=== PATIENT | female | born 1965 | race American Indian/Alaskan Native ===

== ENCOUNTER 2018-02-15 21:27 | Emergency (ER) | payer MEDICAID ==
[~2018-02-15] VITALS: Ht 160 cm; Wt 58.0 kg
[2018-02-15 21:44] VITALS: BP 125/81
== END 2018-02-16 07:40 | disposition left against medical advice (07) ==
LOC: ER 21:27
DX: Z53.21 Procedure and treatment not carried out due to patient leaving prior to being seen by health care provider (principal)

== ENCOUNTER 2019-04-21 14:11 | Emergency (ER) | payer MEDICAID ==
[~2019-04-21] VITALS: Ht 160 cm; Wt 67.3 kg
--- NOTE | 2019-04-21 14:40 | NUR ---
pt states she is here for head cold, cough, sore throat and congestion. pt not reporting same complaints as triage note. No reports of back pain anymore, states she had abdominal pain yesterday on left pelvic area when voiding .no complaints or burning on urination. pain has since resolved.
[2019-04-21 15:39] LABS: HEMOGLOBIN 7.9 g/dl (12.0-16.0); MEAN CORPUSCULAR HEMOGLOBIN 20.1 PG (27.0-31.0); MEAN CORPUSCULAR HGB CONC 29.8 g/dL (33.0-36.5); MEAN CORPUSCULAR VOLUME 67.5 FL (78-98)
[2019-04-21 15:41] LABS: HEMATOCRIT 26.3 % (35.0-45.0); MEAN PLATELET VOLUME 7.9 FL (7.4-10.4); PLATELET COUNT 241 X10'3 (140-440); RED CELL DISTRIBUTION WIDTH 21.9 % (11.5-14.5)
[2019-04-21 15:48] LABS: ALANINE AMINOTRANSFERASE 44 U/L (12-78); ALBUMIN 3.1 G/DL (3.4-5.0); ALBUMIN/GLOBULIN RATIO 0.6 (1.1-1.5); ALKALINE PHOSPHATASE 131 IU/L (46-116); ANION GAP 13 (8-16); ASPARTATE AMINO TRANSFERASE 113 U/L (10-37); BILIRUBIN,TOTAL 0.2 MG/DL (0.1-1.0); BLOOD UREA NITROGEN 7 MG/DL (7-18); BUN/CREATININE RATIO 11.1 (6.6-38.0); CALCIUM 7.9 MG/DL (8.5-10.1); CHLORIDE 104 MMOL/L (99-107); CREATININE 0.63 MG/DL (0.40-0.90); GLUCOSE 104 MG/DL (70-104); POTASSIUM 4.4 MMOL/L (3.5-5.1); SODIUM 139 MMOL/L (135-145); eGFR > 90 ML/MIN
[2019-04-21 15:50] LABS: TROPONIN I < 0.04 NG/ML (0.0-0.05)
--- NOTE | 2019-04-21 15:58 | NUR ---
PT SENT TO BATHROOM FOR UA, GAIT STEADY.
[2019-04-21 16:01] VITALS: BP 115/68
[2019-04-21 16:02] LABS: PLATELET ESTIMATE NORMAL; TOTAL CELLS COUNTED 100
[2019-04-21 16:03] LABS: ANISOCYTOSIS 3+; HYPOCHROMASIA 1+; MICROCYTOSIS 2+; POIKILOCYTOSIS FEW; POLYCHROMASIA FEW; TARGET CELLS FEW
[2019-04-21 16:24] LABS: CLARITY,URINE SLIGHTLY CLOUDY (Clear); COLOR,URINE YELLOW (Yellow); GLUCOSE, URINE NEGATIVE (Neg); KETONES,URINE TRACE mg/dl (Neg); LEUKOCYTE ESTERASE ,URINE SMALL (Neg); NITRITES, URINE POSITIVE (Neg); OCCULT BLOOD,URINE NEGATIVE (Neg); PROTEIN,URINE NEGATIVE (Neg); UROBILINOGEN,URINE 0.2 E.U/dL (0.2-1.0)
[2019-04-21 16:27] LABS: UA COLLECTION TYPE CLN CATCH MIDSTREAM
[2019-04-21 16:42] LABS: MUCUS STRANDS FEW /LPF (Neg); SQUAMOUS EPITHELIAL CELL,UR MANY /LPF (FEW)
[2019-04-21 16:44] LABS: BACTERIA,URINE 3+ /HPF (Neg); RBC,URINE 0-2 /HPF (0-2)
[2019-04-21 16:47] LABS: TRICHOMONAS,URINE MOD /HPF (NEGATIVE)
== END 2019-04-21 17:40 | disposition left against medical advice (07) ==
LOC: ER 14:13
DX: D64.9 Anemia, unspecified (principal); R10.32 Left lower quadrant pain; R05 Cough; R19.7 Diarrhea, unspecified; M62.838 Other muscle spasm; J44.9 Chronic obstructive pulmonary disease, unspecified; F17.200 Nicotine dependence, unspecified, uncomplicated
CPT/HCPCS: 36415; 71046; 74176; 80053; 81001; 84484; 85025; 93005; 99284

== ENCOUNTER 2019-06-13 23:55 | Emergency (ER) | payer MEDICAID ==
[~2019-06-13] VITALS: Ht 161.3 cm; Wt 65.3 kg
[2019-06-14] MEDS ORDERED: acetaminophen 325mg tablet PO ONE (00:10)
[2019-06-14] MEDS ORDERED: LORazepam 2 mg/ml vial IV ONE (00:35)
[2019-06-14] MEDS ORDERED: normal saline 1000ML IV soln IVB ONE (00:35)
[2019-06-14] MEDS ORDERED: famotidine/PF 10 mg/ml inj IV ONE (00:35)
[2019-06-14] MEDS ORDERED: pantoprazole 40 MG vial IV ONE (00:35)
[2019-06-14] MEDS ORDERED: glucagon, human recombinant 1mg kit IV ONE (00:35)
[2019-06-14] MEDS ORDERED: ESOMEPRAZOLE 40 MG VIAL IV ONE (01:12)
[2019-06-14] MEDS ORDERED: fentaNYL/PF 50MCG/1 ML 2ML syringe ONE (02:43)
[2019-06-14] MEDS ORDERED: MIDAZolam 5mg/5ml vial ONE (02:43)
[2019-06-14] MEDS ORDERED: LIDOcaine Viscous 15ml cup ONE (02:43)
[2019-06-14 02:44] VITALS: BP 123/60
[2019-06-14 03:20] VITALS: BP 132/68
[2019-06-14 03:29] VITALS: BP 109/70
[2019-06-14] MEDS ORDERED: OMEP20CA11 PO (03:29)
[2019-06-14 03:39] VITALS: BP 116/65
[2019-06-14 03:49] VITALS: BP 124/68
[2019-06-14 04:05] VITALS: BP 16/125
== END 2019-06-14 04:11 | disposition home or self-care (01) ==
LOC: ER 23:56
DX: T18.128A Food in esophagus causing other injury, initial encounter (principal); K20.9 Esophagitis, unspecified; J44.9 Chronic obstructive pulmonary disease, unspecified; F41.9 Anxiety disorder, unspecified; F31.9 Bipolar disorder, unspecified; Z79.899 Other long term (current) drug therapy; X58.XXXA Exposure to other specified factors, initial encounter; Y93.89 Activity, other specified; Y92.89 Other specified places as the place of occurrence of the external cause; Y99.8 Other external cause status
CPT/HCPCS: 43247; 96374; 96375; 99152; 99153; 99285; C1769; C1773; J1610; J2060; J2250; J3010; J3490; J7030; A4620

== ENCOUNTER 2019-08-03 12:53 | Emergency (ER) | payer MEDICAID ==
[~2019-08-03] VITALS: Ht 161.3 cm; Wt 70.5 kg
[~2019-08-03 12:53] MED LIST: OMEP20CA11 PO
[2019-08-03 13:38] LABS: HEMATOCRIT 41.2 % (35.0-45.0); HEMOGLOBIN 13.4 g/dl (12.0-16.0); WHITE BLOOD COUNT 2.7 X10'3 (4.5-11.0)
[2019-08-03 13:40] LABS: MEAN CORPUSCULAR HEMOGLOBIN 27.8 PG (27.0-31.0); MEAN CORPUSCULAR HGB CONC 32.4 g/dL (33.0-36.5); MEAN CORPUSCULAR VOLUME 85.7 FL (78-98); PLATELET COUNT 154 X10'3 (140-440); RED BLOOD COUNT 4.81 X10'6 (4.20-5.60); RED CELL DISTRIBUTION WIDTH 18.1 % (11.5-14.5)
[2019-08-03] MEDS ORDERED: normal saline 1000ml 1,000 ML IV ONE (13:40)
[2019-08-03 13:48] LABS: PARTIAL THROMBOPLASTIN TIME 29 SECONDS (22-32)
[2019-08-03 13:50] LABS: ALANINE AMINOTRANSFERASE 73 U/L (12-78); ALBUMIN 3.3 G/DL (3.4-5.0); ALBUMIN/GLOBULIN RATIO 0.6 (1.1-1.5); ALKALINE PHOSPHATASE 171 IU/L (46-116); ANION GAP 12 (8-16); ASPARTATE AMINO TRANSFERASE 182 U/L (10-37); BILIRUBIN,TOTAL 0.2 MG/DL (0.1-1.0); BLOOD UREA NITROGEN 6 MG/DL (7-18); CALCIUM 7.9 MG/DL (8.5-10.1); CHLORIDE 105 MMOL/L (99-107); CREATININE 0.67 MG/DL (0.40-0.90); GLUCOSE 107 MG/DL (70-104); SODIUM 141 MMOL/L (135-145); TOTAL CARBON DIOXIDE 24.3 MMOL/L (24-32); eGFR > 90 ML/MIN
[2019-08-03 14:50] LABS: CLARITY,URINE SLIGHTLY CLOUDY (Clear); COLOR,URINE YELLOW (Yellow); GLUCOSE, URINE NEGATIVE (Neg); KETONES,URINE NEGATIVE (Neg); LEUKOCYTE ESTERASE ,URINE TRACE (Neg); NITRITES, URINE NEGATIVE (Neg); OCCULT BLOOD,URINE NEGATIVE (Neg); PROTEIN,URINE NEGATIVE (Neg); UROBILINOGEN,URINE 0.2 E.U/dL (0.2-1.0)
[2019-08-03 14:52] LABS: UA COLLECTION TYPE STRAIGHT CATH
[2019-08-03 15:00] LABS: BACTERIA,URINE 4+ /HPF (Neg); MUCUS STRANDS NONE SEEN /LPF (Neg); RBC,URINE NONE SEEN /HPF (0-2); SQUAMOUS EPITHELIAL CELL,UR FEW /LPF (FEW); TRANSITIONAL EPI CELLS,URINE FEW /HPF; WBC CLUMPS,URINE FEW /HPF (NEGATIVE)
[2019-08-03 15:00] LABS: ETHANOL 0.404 GM/DL (0.0-0.010)
[2019-08-03 15:04] LABS: URINE AMPHETAMINE SCREEN POSITIVE (Neg); URINE BARBITUATE SCREEN NEGATIVE (Neg); URINE BENZODIAZEPINES SCREEN NEGATIVE (Neg); URINE CANNABINOID SCREEN NEGATIVE (Neg); URINE COCAINE SCREEN NEGATIVE (Neg); URINE METHADONE SCREEN NEGATIVE (Neg); URINE OPIATE SCREEN NEGATIVE (Neg); URINE PHENCYCLIDINE SCREEN NEGATIVE (Neg)
[2019-08-03] MEDS ORDERED: CefTRIAXone/D5W-Rocephin 1gm 50 ML IV ONE (15:10)
[2019-08-03] MEDS ORDERED: NITR100C6 PO (15:11)
[2019-08-03] MEDS ORDERED: CefTRIAXone 1000mg IM Kit (w/lidocaine diluent) IM ONE (15:15)
--- NOTE | 2019-08-03 15:15 | NUR ---
pt iv infiltrated during NS bolus. Attempted IV start 4x with 2RN with no success. Dr. Costa notified and aware. No new orders and ok not to give IV abx.
[2019-08-03 15:34] VITALS: BP 97/63
[2019-08-03 16:12] LABS: TOTAL CELLS COUNTED 100
[2019-08-03 16:13] LABS: METAMYLEOCYTES% (MANUAL) 1 % (0-0)
[2019-08-03 16:15] LABS: ANISOCYTOSIS 1+; HYPOCHROMASIA 2+; PLATELET ESTIMATE NORMAL
== END 2019-08-03 15:41 | disposition home or self-care (01) ==
LOC: ER 12:53
DX: R94.6 Abnormal results of thyroid function studies (principal); F10.129 Alcohol abuse with intoxication, unspecified; F15.10 Other stimulant abuse, uncomplicated; N39.0 Urinary tract infection, site not specified; J44.9 Chronic obstructive pulmonary disease, unspecified; F41.9 Anxiety disorder, unspecified; F31.9 Bipolar disorder, unspecified; F17.200 Nicotine dependence, unspecified, uncomplicated; Z79.899 Other long term (current) drug therapy; Y90.0 Blood alcohol level of less than 20 mg/100 ml
CPT/HCPCS: 36415; 71045; 80053; 80305; 80320; 81001; 84443; 84484; 85025; 85610; 85730; 87077; 87088; 87186; 93005; 96374; 99284; J0696

== ENCOUNTER 2020-10-15 00:37 | Emergency (ER) | payer MEDICAID ==
[~2020-10-15] VITALS: Ht 160 cm; Wt 65.9 kg
[~2020-10-15 00:37] MED LIST changes: +NITR100C6 PO; -OMEP20CA11 PO; +OMEP20CA15 PO
[2020-10-15] MEDS ORDERED: nitroGLYCERIN 0.4mg SUBLingual tab SL PRN (01:15)
[2020-10-15] MEDS ORDERED: glucagon, human recombinant 1mg kit IV ONE (01:15)
[2020-10-15] MEDS ORDERED: ondansetron/PF 4mg/2ml inj IV ONE (03:40)
--- NOTE | 2020-10-15 04:44 | NUR ---
PT ASKING STAFF TO MOVE BLANKETS UP WHILE IN BED. BOTH UPPER EXTREMETIES ARE FULLY FUNCTIONAL.
[2020-10-15] MEDS ORDERED: fentaNYL/PF 50MCG/1 ML 2ML syringe ONE (06:29)
[2020-10-15] MEDS ORDERED: LORazepam 2 mg/ml vial IV ONE (06:30)
[2020-10-15] MEDS ORDERED: MIDAZolam 5mg/5ml vial ONE (06:30)
[2020-10-15] MEDS ORDERED: LIDOcaine Viscous 15ml cup ONE (06:30)
[2020-10-15 06:40] VITALS: BP 122/73
--- NOTE | 2020-10-15 06:44 | NUR ---
PT TO GI LAB.
[2020-10-15 07:15] VITALS: BP 149/84
[2020-10-15 07:25] VITALS: BP 137/80
[2020-10-15 07:35] VITALS: BP 134/84
[2020-10-15 07:45] VITALS: BP 136/85
--- NOTE | 2020-10-15 07:48 | NUR ---
PT BACK FROM GI LAB, NEEDS Q15 MIN VITALS THEN SHE IS GOOD FOR D/C.
[2020-10-15] MEDS ORDERED: OMEP20TA23 PO (07:51)
--- NOTE | 2020-10-15 08:07 | NUR ---
CALLED PT'S FRIEND ABELARDO TO GIVE HER A RIDE HOME.
[2020-10-15 08:34] VITALS: BP 109/82
== END 2020-10-15 08:41 | disposition home or self-care (01) ==
LOC: ER 00:37
DX: T18.128A Food in esophagus causing other injury, initial encounter (principal); J44.9 Chronic obstructive pulmonary disease, unspecified; F31.9 Bipolar disorder, unspecified; Z79.899 Other long term (current) drug therapy; X58.XXXA Exposure to other specified factors, initial encounter; Y93.89 Activity, other specified; Y92.89 Other specified places as the place of occurrence of the external cause; Y99.8 Other external cause status
CPT/HCPCS: 43239; 43247; 43450; 71045; 96374; 96375; 99152; 99153; 99285; C1773; J1610; J2250; J2405; J3010; J7040; A4620

== ENCOUNTER 2021-08-01 08:23 | Emergency (ER) | payer MEDICAID ==
[~2021-08-01] VITALS: Ht 160 cm; Wt 61.4 kg
[~2021-08-01 08:23] MED LIST changes: +OMEP20TA23 PO
[2021-08-01 08:26] VITALS: BP 125/76
[2021-08-01] MEDS ORDERED: sucralfate 1gm/10ml UD suspension PO STA (08:52)
[2021-08-01] MEDS ORDERED: mag hydrox/Alum hydrox/simeth 30ml oral suspension PO ONE (08:55)
[2021-08-01] MEDS ORDERED: LIDOcaine Viscous 15ml cup MM ONE (08:55)
[2021-08-01] MEDS ORDERED: sucralfate 1 gm tablet PO STA (09:24)
[2021-08-01] MEDS ORDERED: SUCR1TAB34 PO (11:54)
[2021-08-01] MEDS ORDERED: PANT-47 PO (11:54)
[2021-08-01] MEDS ORDERED: MAG355OR18 PO (11:54)
== END 2021-08-01 12:01 | disposition home or self-care (01) ==
LOC: ER 08:23
DX: K20.80 Other esophagitis without bleeding (principal); J44.9 Chronic obstructive pulmonary disease, unspecified; F41.9 Anxiety disorder, unspecified; F31.9 Bipolar disorder, unspecified; Z72.89 Other problems related to lifestyle; Z79.899 Other long term (current) drug therapy
CPT/HCPCS: 99284